=== PATIENT | female | born 1935 | race Caucasian/White ===

== ENCOUNTER 2017-10-09 21:28 | Inpatient (IN) ==
--- NOTE | 2017-10-09 21:53 | Emergency Department Note ---
Disposition Clinical Impression: Foot fracture, Frequent falls, Gait disorder, Morbid obesity Disposition: Admitted As Inpatient Condition: Good Referrals: Myra Hickman MD [Primary Care Provider] - Forms: ED Satisfaction Letter Time of Disposition: 22:18 (josephflakita d[facility]) Lower Extremity Injury HPI - General Chief Complaint: ED Extremity Injury, Lower Stated Complaint: Left foot pain D/T fall onset 2 days Source: patient, family Mode of arrival: ambulatory Limitations: no limitations Nursing Notes Reviewed: Yes Vital Signs Reviewed: Yes - History of Present Illness HPI Narrative: Elderly female the other day lost her balance fell struck and hit her head had a CAT scan done a [facility] also had x-rays of the foot was told that everything was okay patient presents here to the emergency room after still having persistent problems with inability to walk and bear weight patient' s been having swelling edema like she denies any ankle or knee pain patient states that she is unable to put any weight down on the left foot patient states that she is deconditioned she is unable to move about how she caste frequent falls she denies any blurred vision double vision loss vision chest pain chest pressure palpitations cough hemoptysis or sputum production patient is here for evaluation with possible need for placement into a care facility for rehabilitation purposes Pt Subjective Complaint: foot injury Injury location: Left foot (fore foot pain) Onset (ago): day(s) Mechanism of Injury: hyperflexion Context: fall, walking Place: home Pain Severity: moderate, severe Pain Scale: 7 Improves with: nothing Worsens with: weight bearing, movement Associated symptoms: Reports: able to partially bear weight (wgt transfer only) , snap/pop sensation, swelling, deformity Treatments prior to arrival: other (has been seen by other [facility]) - Related Data Home Medications Medication Instructions Recorded Confirmed Albuterol Sulfate [Ventolin Hfa] 1 puff IH Q4H PRN 09/04/17 10/09/17 Alendronate Sodium [Fosamax] 70 mg PO QWEEK 09/04/17 10/09/17 Anastrozole [Arimidex] 1 mg PO DAILY 09/04/17 09/04/17 Citalopram Hydrobromide [Celexa] 30 mg PO QAM 09/04/17 10/09/17 Ergocalciferol (VITAMIN D2) 50,000 mg PO QWEEK 09/04/17 10/09/17 [Vitamin D2] Furosemide [Lasix] 20 mg PO DAILY 09/04/17 10/09/17 Glimepiride [Amaryl] 4 mg PO DAILY 09/04/17 10/09/17 Isosorbide MONOnitrate (24 HR) 30 mg PO DAILY 09/04/17 10/09/17 [Imdur] LORazepam [Ativan] 1 mg PO BID PRN 09/04/17 10/09/17 Lovastatin [Lovastatin] 40 mg PO DAILY 09/04/17 10/09/17 Metoprolol [Lopressor] 100 mg PO BID 09/04/17 10/09/17 Nitroglycerin [Nitrostat] 0.4 mg SL Q5M PRN 09/04/17 10/09/17 Omeprazole [PriLOSEC] 20 mg PO BID 09/04/17 10/09/17 Oxycodone HCl/Acetaminophen 1 tab PO Q8H PRN 09/04/17 10/09/17 [Percocet 7.5-325 mg Tablet] Tizanidine HCl 2 mg PO DAILY PRN 09/04/17 09/04/17 Warfarin [Coumadin] 4 mg PO 1800 09/04/17 10/09/17 traZODone [TraZODone] 50 mg PO HS 09/04/17 10/09/17 Budesonide/Formoterol 160/4.5 1 puff IH BIDR 10/09/17 10/09/17 [Symbicort 160/4.5] Ondansetron HCl [Zofran] 4 mg PO TID 10/09/17 10/09/17 Promethazine [Phenergan] 25 mg PO Q6HR PRN 10/09/17 10/09/17 Allergies Allergy/AdvReac Type Severity Reaction Status Date / Time acetaminophen [From Vicodin] AdvReac Hallucinati Verified 10/09/17 22:11 ng atorvastatin [From Lipitor] AdvReac Weakness Verified 10/09/17 22:11 hydrocodone [From Vicodin] AdvReac Hallucinati Verified 10/09/17 22:11 ng Iodinated Contrast- Oral and AdvReac See Verified 10/09/17 22:11 IV Dye Comments simvastatin [From Zocor] AdvReac Weakness Verified 10/09/17 22:11 All systems ED: reviewed and negative except as stated. Review of Systems: As Per HPI Constitutional: Denies: fever, chills, weakness Eyes: Denies: eye pain, eye discharge ENT ED: Denies: ear pain, throat pain Cardiovascular: Denies: chest pain, palpitations Respiratory: Denies: cough, dyspnea, wheezes Gastrointestinal: Denies: abdominal pain, nausea Genitourinary: Denies: dysuria, frequency, dyspareunia Musculoskeletal: Reports: arthralgia. Denies: back pain, neck pain Integumentary: Denies: rash, abrasion, lesions Neurological: Reports: weakness, other (frequent falls) Psychiatric: Denies: anxiety, depression Endocrine: Denies: fatigue, heat or cold intolerance Hematological/Lymphatic: Reports: other (edema of the legs). Denies: easy bleeding, easy bruising Allergic/Immunologic: Denies: facial swelling, urticaria Past Medical History - Past Medical History Attestation: Yes The following information was validated with the patient. Source: patient, old records reviewed, nursing notes reviewed Medical history: Reports: cancer, CHF, COPD, coronary artery disease, DVT, diabetes, GERD, hyperlipidemia, hypertension, myocardial infarction, pulmonary embolus, syncope Surgical history: Reports: angioplasty/stent, appendectomy, cataract, cholecystectomy, hysterectomy, knee replacement Psychiatric history: Reports: depression - Social History Smoking Status: Never smoker Smokeless Tobacco Status: No Alcohol use: Reports: none Drug use: Reports: none Physical Exam - General Limitations: no limitations General appearance: alert, in no apparent distress, anxious, obese - Head Head exam: atraumatic, normocephalic, normal inspection - Eye Eye exam: Present: normal appearance, PERRL, EOMI - ENT ENT exam: normal exam, normal oropharynx, mucous membranes moist, TM's normal bilaterally, normal external ear exam - Neck Neck exam: Present: normal inspection, full ROM, trachea midline - Chest Chest inspection: Present: normal inspection, symmetric chest wall rise - Respiratory Respiratory exam: Present: normal lung sounds bilaterally - Cardiovascular Cardiovascular exam: Present: regular rate, normal rhythm, normal heart sounds - Abdominal Exam Abdominal exam: Present: soft, Non-Tender, normal bowel sounds. Absent: mass, pulsatile mass - Expanded Upper Extremity Exam Shoulder exam: Present: normal inspection, full ROM Arm exam: Present: normal inspection, full ROM Elbow exam: Present: normal inspection, full ROM Forearm/Wrist exam: Present: normal inspection, full ROM Hand exam: Present: normal inspection, full ROM Vascular exam: Normal: capillary refill, radial pulse - Expanded Lower Extremity Exam Hip/Pelvis exam: Present: normal inspection, full ROM, swelling, other (Large truck 6 extremities but swelling and edema of the lower extremities appears to be symmetrical presentation ) Upper leg exam: Present: normal inspection, full ROM, swelling Knee exam: Present: normal inspection, full ROM, swelling Lower leg exam: Present: normal inspection, full ROM, swelling Ankle exam: Present: normal inspection, full ROM, swelling Foot/toe exam: Present: normal inspection, full ROM, tenderness, swelling, ecchymosis, other (Left foot unable to bear weight) 1 - Tenderness line 2 - Swelling and edema Neurovascular/Tendon exam: Present: normal capillary refill, normal fine/light touch. Absent: motor deficit, sensory deficit, tendon deficit Gait: observed and normal - Back Exam Back exam: Present: normal inspection, full ROM. Absent: muscle spasm - Neurological Exam Neurological exam: Present: alert, oriented X3, CN II-XII intact, normal gait - Psychiatric Psychiatric exam: Present: normal affect, normal mood - Skin Skin exam: Present: warm, dry, intact, normal color Course Course Narrative: Patient seen and examined x-rays were obtained with evidence of what appears to be a 4 foot fracture on the left which would account for the patient's inability to bear weight but with the swelling in the edema and the frequent falls she is unsteady on her gait which would have caused her at higher risk for having further injury as a result recommend hospitalization with possibility of a swing bed or rehabilitation purposes to improve gait stability especially with the recent broken foot and inability to bear weight Dr Genao agrees Vital Signs Temperature 98.2 F 10/09/17 21:30 Pulse Rate 92 10/09/17 21:30 Respiratory Rate 16 10/09/17 21:30 Blood Pressure 174/89 10/09/17 21:30 O2 Sat by Pulse Oximetry 96 10/09/17 21:30 Temperature 98.2 F 10/09/17 21:30 Pulse Rate 92 10/09/17 21:30 Respiratory Rate 16 10/09/17 21:30 Blood Pressure 174/89 10/09/17 21:30 O2 Sat by Pulse Oximetry 96 10/09/17 21:30 Oxygen Delivery Oxygen Delivery Room Air Procedures - Orthopedic Splinting/Casting Injury #1 Side: left Lower Extremity Injury Location: foot Lower Extremity Immobilizer: posterior splint Additional Comments: Neurovascular intact after splint applied by nursing staff Extremity Injury, Lower - Differential Diagnosis Likely: sprain/strain, fracture, dislocation - Medical Records Medical records reviewed: Yes I reviewed the patient's medical records. - Lab Data Lab results reviewed: Yes I reviewed the patient's lab results. Result diagrams: 10/09/17 22:08 10/09/17 22:08 Lab Results 10/09/17 10/09/17 10/09/17 Range/Units 22:08 22:08 22:08 WBC 7.0 (4.3-11.1) K/mcL RBC 4.24 (3.82-4.97) M/mcL Hgb 11.0 L (11.5-15.4) g/dL Hct 34.8 L (35.3-44.9) % MCV 82.1 L (83.0-100.0) fL MCH 25.9 L (28.0-33.3) pg MCHC 31.6 (31.6-35.5) g/dL RDW 14.8 H (11.5-14.5) % Plt Count 171 (140-400) K/mcL MPV 9.5 (9.4-12.4) fL Immature Gran % 0.4 (0-4) % Seg Neutrophils % 67.4 % Lymphocytes % 20.0 % Monocytes % 6.9 % Eosinophils % 4.9 % Basophils % 0.4 % Neutrophils # 4.7 (1.6-8.9) K/mcL Lymphocytes # 1.4 (0.6-4.6) K/mcL Monocytes # 0.5 (0.0-1.3) K/mcL Eosinophils # 0.3 (0.0-0.6) K/mcL Basophils # 0.0 (0.0-0.2) K/mcL PT (9.4-12.1) Seconds INR Sodium 145 (136-145) mEq/L Potassium 3.3 L (3.5-4.5) mEq/L Chloride 105 (98-109) mEq/L Carbon Dioxide 29 (19-29) mEq/L BUN 12 (7-20) mg/dL Creatinine 0.99 (0.57-1.11) mg/dL Est GFR ( Amer) > 60 (> 60) Est GFR (Non-Af Amer) 54 L (> 60) BUN/Creatinine Ratio 12 (6-26) Glucose 155 H (70-99) mg/dL Calculated Osmolality 303 H (280-300) Calcium 9.6 (8.6-10.8) mg/dL B-Natriuretic Peptide 82 (0-100) pg/mL 10/09/17 Range/Units 22:08 WBC (4.3-11.1) K/mcL RBC (3.82-4.97) M/mcL Hgb (11.5-15.4) g/dL Hct (35.3-44.9) % MCV (83.0-100.0) fL MCH (28.0-33.3) pg MCHC (31.6-35.5) g/dL RDW (11.5-14.5) % Plt Count (140-400) K/mcL MPV (9.4-12.4) fL Immature Gran % (0-4) % Seg Neutrophils % % Lymphocytes % % Monocytes % % Eosinophils % % Basophils % % Neutrophils # (1.6-8.9) K/mcL Lymphocytes # (0.6-4.6) K/mcL Monocytes # (0.0-1.3) K/mcL Eosinophils # (0.0-0.6) K/mcL Basophils # (0.0-0.2) K/mcL PT 24.4 H (9.4-12.1) Seconds INR 2.2 Sodium (136-145) mEq/L Potassium (3.5-4.5) mEq/L Chloride (98-109) mEq/L Carbon Dioxide (19-29) mEq/L BUN (7-20) mg/dL Creatinine (0.57-1.11) mg/dL Est GFR ( Amer) (> 60) Est GFR (Non-Af Amer) (> 60) BUN/Creatinine Ratio (6-26) Glucose (70-99) mg/dL Calculated Osmolality (280-300) Calcium (8.6-10.8) mg/dL B-Natriuretic Peptide (0-100) pg/mL - Radiology Data Radiology results reviewed: Yes I reviewed the patient's radiology results. ITS Impressions Foot X-Ray 10/09/17 21:35 IMPRESSION: Acute fractures of the 2nd through 4th metatarsals distally. D/ / Darnell Burnett MD / Darnell Burnett MD Interpreting Provider: Darnell Burnett MD Critical Care Time Critical Care Time: No
[2017-10-09 22:14] LABS: Basophils % 0.4 %; Eosinophils # 0.3 K/mcL (0.0-0.6); Eosinophils % 4.9 %; Hematocrit 34.8 % (35.3-44.9); Immature Granulocytes % 0.4 % (0-4); Lymphocytes # 1.4 K/mcL (0.6-4.6); Mean Corpuscular HGB Conc 31.6 g/dL (31.6-35.5); Mean Corpuscular Hemoglobin 25.9 pg (28.0-33.3); Mean Corpuscular Volume 82.1 fL (83.0-100.0); Mean Platelet Volume 9.5 fL (9.4-12.4); Monocytes # 0.5 K/mcL (0.0-1.3); Monocytes % 6.9 %; Neutrophils # 4.7 K/mcL (1.6-8.9); Platelet Count 171 K/mcL (140-400); Red Blood Count 4.24 M/mcL (3.82-4.97); Red Cell Distribution Width 14.8 % (11.5-14.5); Segmented Neutrophils % 67.4 %
[2017-10-09] MEDS ORDERED: *HR* OxyCODONE/APAP 5/325 TABLET PO ONE (22:16)
[2017-10-09 22:27] LABS: BUN/Creatinine Ratio 12 (6-26); Blood Urea Nitrogen 12 mg/dL (7-20); Calcium 9.6 mg/dL (8.6-10.8); Carbon Dioxide 29 mEq/L (19-29); Chloride 105 mEq/L (98-109); Glucose 155 mg/dL (70-99); Osmolality,Calculated 303 (280-300); Potassium 3.3 mEq/L (3.5-4.5); Sodium 145 mEq/L (136-145); eGFR For African Americans > 60 (> 60); eGFR For Non-African Americans 54 (> 60)
[2017-10-09 22:34] LABS: INR 2.2; Prothrombin Time 24.4 Seconds (9.4-12.1)
[2017-10-09] MEDS ORDERED: Potassium Effervescent 25 MEQ TABLET.EFF PO ONE (22:43)
[2017-10-09] MEDS ORDERED: Nitroglycerin 0.4 MG TAB.SUBL SL PRN (23:28)
[2017-10-09] MEDS ORDERED: NON-FORMULARY MEDICATION 1 EACH EACH (Alendronate Sodium [Fosamax] 70 MG) PO SCH (23:28)
[2017-10-09] MEDS ORDERED: Naloxone 0.4 MG/ML INJ IVP PRN (23:28)
[2017-10-10] MEDS: *HR* LORazepam 1 MG TABLET PO PRN ×2 (01:01→23:20)
[2017-10-10 06:27] LABS: Basophils % 0.5 %; Eosinophils # 0.3 K/mcL (0.0-0.6); Hematocrit 31.1 % (35.3-44.9); Hemoglobin 9.9 g/dL (11.5-15.4); Immature Granulocytes % 0.8 % (0-4); Lymphocytes # 1.7 K/mcL (0.6-4.6); Lymphocytes % 26.7 %; Mean Corpuscular HGB Conc 31.8 g/dL (31.6-35.5); Mean Corpuscular Hemoglobin 26.1 pg (28.0-33.3); Mean Corpuscular Volume 82.1 fL (83.0-100.0); Mean Platelet Volume 9.9 fL (9.4-12.4); Monocytes # 0.5 K/mcL (0.0-1.3); Monocytes % 8.3 %; Neutrophils # 3.7 K/mcL (1.6-8.9); Platelet Count 144 K/mcL (140-400); Red Blood Count 3.79 M/mcL (3.82-4.97); Red Cell Distribution Width 14.7 % (11.5-14.5); Segmented Neutrophils % 58.7 %
[2017-10-10 06:35] LABS: Prothrombin Time 22.4 Seconds (9.4-12.1)
[2017-10-10 06:38] LABS: Activated Partial Thrombo Time 32.5 Seconds (26.0-36.0)
[2017-10-10 06:43] LABS: BUN/Creatinine Ratio 16 (6-26); Blood Urea Nitrogen 13 mg/dL (7-20); Calcium 9.3 mg/dL (8.6-10.8); Carbon Dioxide 29 mEq/L (19-29); Chloride 107 mEq/L (98-109); Glucose 98 mg/dL (70-99); Osmolality,Calculated 300 (280-300); Potassium 3.7 mEq/L (3.5-4.5); Sodium 145 mEq/L (136-145); eGFR For African Americans > 60 (> 60); eGFR For Non-African Americans > 60 (> 60)
[2017-10-10] MEDS ORDERED: *HR* Glimepiride 4 MG TABLET PO SCH (09:00)
[2017-10-10] MEDS ORDERED: Furosemide 20 MG TABLET PO SCH (09:00)
[2017-10-10] MEDS ORDERED: Metoprolol 100 MG TABLET PO SCH (09:00)
[2017-10-10] MEDS: Isosorbide MONOnitrate (24 HR) 30 MG TAB.ER.24H PO SCH (09:55)
[2017-10-10] MEDS: *HR* OxyCODONE/APAP 7.5/325 TABLET PO PRN ×3 (10:00→23:18)
[2017-10-10] MEDS: Cholecalciferol (D-3) 1,000 UNIT TABLET PO SCH (10:50)
[2017-10-10] MEDS: *HR* Glimepiride 2 MG TABLET PO SCH (10:50)
--- NOTE | 2017-10-10 15:14 | Internal Med History&Physical ---
Date of Encounter: 10/10/17 Time of Encounter: 14:30 Assessment and Plan (1) Foot fracture Current visit: Yes Status: Acute She will be given scheduled Tylenol and prn analgesics. She will need to be seen by the orthopedist and probably need a walking boot. She will require therapy intervention to assess for stability using a walker with the walking boot. Qualifiers: Encounter type: initial encounter Fracture type: closed Laterality: left Qualified Code(s): S92.902A - Unspecified fracture of left foot, initial encounter for closed fracture (2) Hypokalemia Current visit: Yes Status: Acute Suspect due to Lasix use. Will add supplemental potassium and monitor labs. (3) Azotemia Current visit: Yes Status: Acute Estimated GFR was decreased at 54 on admission. She will be given IV fluids and renal indices monitored. (4) Microcytic anemia Current visit: Yes Status: Acute We will order anemia testing in a.m. Hemoglobin has decreased further to 9.9. (5) Frequent falls Current visit: Yes Status: Acute Suspect multifactorial etiology including DJD, anemia, and muscle weakness from hypokalemia. (6) Headache Current visit: Yes Status: Acute We will order head CT since she is on Coumadin and has had 2 falls and complaints of headache. Qualifiers: Headache type: unspecified Headache chronicity pattern: acute headache Intractability: not intractable Qualified Code(s): R51 - Headache Internal Medicine - H&P: HPI Chief complaint: Falls, multiple metatarsal fractures, microcytic anemia Admitted From: Emergency Dept Plans for Post Hospital Care: Transfer Longterm Facility History of present illness: Ms. Baird is a 81 year old female who came to emergency room for persistent pain in her left foot following falls she had October 05 and October 06. She had been to a local emergency room near her home where x-rays of the ankle were done with no fracture seen. She had additional x-rays of her ankle done at her PCP office the following day but no fractures were noted. She continued to have pain in her foot so came to [facility] emergency room. Foot x-ray showed left second third and fourth metatarsal bone fractures . She was admitted to [facility] for ongoing care needs. She states she is had several episodes of near-falls besides the 2 falls mentioned above. She reports feeling dizzy on standing and general weakness. She has occasional sensation of vertigo. She has had left arm fracture in the past. She has diagnosis of gout and DJD. She typically walks with a walker. She has had bilateral total knee replacements. Past Med Surg Social Fam HX - Past Medical History Medical history: cancer, CHF, COPD, coronary artery disease, DVT, diabetes, GERD , hyperlipidemia, hypertension, myocardial infarction, pulmonary embolus, syncope Psychiatric history: depression - Past Surgical History Surgical History: angioplasty/stent, appendectomy, cataract, cholecystectomy, hysterectomy, knee replacement - Social History Smoking Status: Never smoker Smokeless Tobacco Status: No Alcohol use: none Drug use: none Internal Medicine - H&P: Meds Albuterol Sulfate [Ventolin Hfa] 1 puff IH Q4H PRN 09/04/17 [History] Alendronate Sodium [Fosamax] 70 mg PO QWEEK 09/04/17 [History] Anastrozole [Arimidex] 1 mg PO DAILY 09/04/17 [History] Citalopram Hydrobromide [Celexa] 30 mg PO QAM 09/04/17 [History] Ergocalciferol (VITAMIN D2) [Vitamin D2] 50,000 mg PO QWEEK 09/04/17 [History] Furosemide [Lasix] 20 mg PO DAILY 09/04/17 [History] Glimepiride [Amaryl] 4 mg PO DAILY 09/04/17 [History] Isosorbide MONOnitrate (24 HR) [Imdur] 30 mg PO DAILY 09/04/17 [History] LORazepam [Ativan] 1 mg PO BID PRN 09/04/17 [History] Lovastatin [Lovastatin] 40 mg PO DAILY 09/04/17 [History] Metoprolol [Lopressor] 100 mg PO BID 09/04/17 [History] Nitroglycerin [Nitrostat] 0.4 mg SL Q5M PRN 09/04/17 [History] Omeprazole [PriLOSEC] 20 mg PO BID 09/04/17 [History] Oxycodone HCl/Acetaminophen [Percocet 7.5-325 mg Tablet] 1 tab PO Q8H PRN [History] Tizanidine HCl 2 mg PO DAILY PRN 09/04/17 [History] Warfarin [Coumadin] 4 mg PO 1800 09/04/17 [History] traZODone [TraZODone] 50 mg PO HS 09/04/17 [History] Budesonide/Formoterol 160/4.5 [Symbicort 160/4.5] 1 puff IH BIDR 10/09/17 [ History] Ondansetron HCl [Zofran] 4 mg PO TID 10/09/17 [History] Promethazine [Phenergan] 25 mg PO Q6HR PRN 10/09/17 [History] 3 Allergy/AdvReac Type Severity Reaction Status Date / Time acetaminophen [From Vicodin] AdvReac Hallucinati Verified 10/10/17 00:45 ng atorvastatin [From Lipitor] AdvReac Weakness Verified 10/10/17 00:46 hydrocodone [From Vicodin] AdvReac Hallucinati Verified 10/10/17 00:46 ng Iodinated Contrast- Oral and AdvReac See Verified 10/10/17 00:45 IV Dye Comments simvastatin [From Zocor] AdvReac Weakness Verified 10/10/17 00:46 All Systems PM: A 10-system review of systems was performed and is negative for pertinent findings except as documented above in the HPI. Review of systems: Gen.: Her weight has been stable the past 2 months Cardiovascular: She has history of hypertension and known ASHD status post FL on 2 occasions with the most recent one approximately 2012. She has had a total of 8 stents placed with most recent ones done at the time of her last FL/ catheter in 2012. She has been diagnosed CHF. 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 Respiratory: She is a lifelong nonsmoker but states she has been diagnosed with COPD. She uses oxygen at bedtime and when necessary during the daytime. GI: She has had cholecystectomy but denies disorders of her liver or exocrine pancreas : She denies hematuria dysuria or kidney stones Neurologic: She denies large distribution strokes or seizures Endocrine: She was diagnosed with DM 2 approximately 1996. She has hyperlipidemia but no known thyroid disease Hematology/oncology: She had left breast cancer with partial mastectomy in 2014. She is presumed cancer free and uses Arimidex now. She has had anemia in the past but does not know details . Psychiatric: She has anxiety and depression but denies other mental health issues Musk skeletal: As per history of present illness - Constitutional Vitals: Temp Pulse Resp BP Pulse Ox 98.1 F 82 18 186/90 98 10/10/17 11:07 10/10/17 11:07 10/10/17 11:07 10/10/17 11:07 10/10/17 11:07 Exam: Gen.: She is well-developed overweight female lying in bed who appears weak and tired. She complains of pain in her left foot, head, and shoulder HEENT: Head is a chronic and normocephalic. Eyes: EOMI. There is no scleral icterus. Mouth: Mucosa is dry Neck: Supple and nontender. There is no thyromegaly or adenopathy noted. Heart: Regular without murmurs gallops or ectopics Lungs: No wheezes or crackles are heard. Abdomen: She has mild tenderness to palpation. No masses or guarding are noted. Extremities: Left lower leg is wrapped in a immobilization splint with elastic wrap. I did not remove this. The right leg shows trace palpable dorsalis pedis and posterior tibial pulses. She has DJD changes of her hands. Neurologic: Mental status: She is talkative and a good historian. Cranial nerves: Smile is symmetric. Forehead wrinkles bilaterally. Tongue protrudes midline. EOMI. Motor: There is no pronator drift. Cerebellar: Finger to nose is intact bilaterally. Skin: Warm and dry Internal Med - H&P Results - Labs CBC & Chem 7: 10/10/17 05:53 10/10/17 05:53 Labs: Short CBC 10/10/17 Range/Units 05:53 WBC 6.3 (4.3-11.1) K/mcL Hgb 9.9 L (11.5-15.4) g/dL Hct 31.1 L (35.3-44.9) % Plt Count 144 (140-400) K/mcL Neutrophils # 3.7 (1.6-8.9) K/mcL BMP 10/10/17 05:53 Sodium 145 Potassium 3.7 Chloride 107 Carbon Dioxide 29 BUN 13 Creatinine 0.81 Glucose 98 Calcium 9.3
[2017-10-10] MEDS: *HR* Warfarin 3 MG TABLET PO SCH (18:01)
[2017-10-10] MEDS: traZODone 50 MG TABLET PO SCH (20:36)
[2017-10-11 05:18] LABS: Basophils % 0.6 %; Eosinophils # 0.4 K/mcL (0.0-0.6); Eosinophils % 5.7 %; Hemoglobin 11.4 g/dL (11.5-15.4); Immature Granulocytes % 0.5 % (0-4); Lymphocytes # 2.2 K/mcL (0.6-4.6); Lymphocytes % 34.1 %; Mean Corpuscular HGB Conc 31.7 g/dL (31.6-35.5); Mean Corpuscular Hemoglobin 26.1 pg (28.0-33.3); Mean Corpuscular Volume 82.4 fL (83.0-100.0); Mean Platelet Volume 9.5 fL (9.4-12.4); Monocytes # 0.6 K/mcL (0.0-1.3); Neutrophils # 3.3 K/mcL (1.6-8.9); Platelet Count 159 K/mcL (140-400); Red Blood Count 4.37 M/mcL (3.82-4.97); Red Cell Distribution Width 14.8 % (11.5-14.5); Segmented Neutrophils % 50.1 %
[2017-10-11 05:45] LABS: Alanine Aminotransferase 7 Units/L (0-55); Albumin 3.2 g/dL (3.5-5.0); Albumin/Globulin Ratio 0.8 (1.1-2.2); Alkaline Phosphatase 69 Units/L (38-126); Aspartate Amino Transferase 12 Units/L (5-34); BUN/Creatinine Ratio 12 (6-26); Bilirubin,Total 0.5 mg/dL (0.2-1.2); Blood Urea Nitrogen 11 mg/dL (7-20); Calcium 9.8 mg/dL (8.6-10.8); Carbon Dioxide 31 mEq/L (19-29); Chloride 105 mEq/L (98-109); Globulin 3.8 g/dL (2.4-3.5); Glucose 96 mg/dL (70-99); Magnesium 2.2 mg/dL (1.6-2.6); Osmolality,Calculated 299 (280-300); Potassium 3.9 mEq/L (3.5-4.5); Sodium 145 mEq/L (136-145); eGFR For African Americans > 60 (> 60); eGFR For Non-African Americans 60 (> 60)
[2017-10-11] MEDS: 0.45 % Sodium Chloride w/KCl 20 MEQ/1,000 ML MLS IVC SCH ×4 (05:59→19:03)
[2017-10-11 06:05] LABS: Thyroid Stimulating Hormone 0.814 mcIU/mL (0.350-4.840)
[2017-10-11] MEDS: Isosorbide MONOnitrate (24 HR) 30 MG TAB.ER.24H PO SCH (08:27)
[2017-10-11] MEDS: Cholecalciferol (D-3) 1,000 UNIT TABLET PO SCH (08:27)
[2017-10-11] MEDS: *HR* OxyCODONE/APAP 7.5/325 TABLET PO PRN ×3 (08:28→21:34)
[2017-10-11] MEDS: *HR* LORazepam 1 MG TABLET PO PRN ×2 (08:29→21:35)
[2017-10-11] MEDS: *HR* Glimepiride 2 MG TABLET PO SCH ×2 (08:29→12:04)
[2017-10-11 10:37] LABS: % Iron Saturation 15 % (15-50); Ferritin 43 ng/ml (10-120); Iron 50 mcg/dL (50-170); Transferrin 237 mg/dL (203-362)
[2017-10-11 12:08] LABS: Folate 9.9 ng/mL (3.0-16.0)
--- NOTE | 2017-10-11 17:11 | Internal Med Progress Note ---
Date of Encounter: 10/11/17 Time of Encounter: 17:05 - Assessment and plan (1) Foot fracture Current Visit: Yes Status: Acute Assessment and plan: October 11. Continue scheduled Tylenol and prn analgesics. Will be seen by orthopedist 10/13/2017 if appointment can be arranged. Qualifiers: Encounter type: initial encounter Fracture type: closed Laterality: left Qualified Code(s): S92.902A - Unspecified fracture of left foot, initial encounter for closed fracture (2) Hypokalemia Current Visit: Yes Status: Acute Assessment and plan: October 11. Resolved. Continue IV fluids with potassium supplementation and recheck labs in a.m. (3) Azotemia Current Visit: Yes Status: Acute Assessment and plan: October 11. Creatinine was stable at 0.91 with estimated GFR 60. (4) Microcytic anemia Current Visit: Yes Status: Acute Assessment and plan: October 11. Anemia testing showed iron 50, transferrin saturation 15%, transferrin 237, ferritin 43, B12 445, and folate 9.9. Hemoglobin has improved to 11.4. (5) Frequent falls Current Visit: Yes Status: Acute Assessment and plan: October 11. Continue therapy (6) Headache Current Visit: Yes Status: Acute Assessment and plan: October 11. Head CT was unremarkable. She did not mention headache today. Will continue to monitor. Qualifiers: Headache type: unspecified Headache chronicity pattern: acute headache Intractability: not intractable Qualified Code(s): R51 - Headache - Subjective Interval history: October 11. She has no new complaints. She has pain in her left foot. - Constitutional Vitals: Temp Pulse Resp BP Pulse Ox 97.9 F 65 16 133/62 94 10/11/17 15:14 10/11/17 15:14 10/11/17 15:14 10/11/17 15:14 10/11/17 15:14 Exam: She is sitting in a chair at bedside and appears comfortable. She is more alert and talkative. She does not appear in pain at rest. I reviewed her medications and lab results. Internal Medicine: Result - Labs CBC & Chem 7: 10/11/17 04:53 10/11/17 04:53 Labs: Short CBC 10/11/17 Range/Units 04:53 WBC 6.5 (4.3-11.1) K/mcL Hgb 11.4 L D (11.5-15.4) g/dL Hct 36.0 (35.3-44.9) % Plt Count 159 (140-400) K/mcL Neutrophils # 3.3 (1.6-8.9) K/mcL BMP 10/11/17 04:53 Sodium 145 Potassium 3.9 Chloride 105 Carbon Dioxide 31 H BUN 11 Creatinine 0.91 Glucose 96 Calcium 9.8 Liver Function 10/11/17 Range/Units 04:53 Total Bilirubin 0.5 (0.2-1.2) mg/dL AST 12 (5-34) Units/L ALT 7 (0-55) Units/L Alkaline Phosphatase 69 (38-126) Units/L Albumin 3.2 L (3.5-5.0) g/dL - ABG Interpretation ABG results: PT/INR, D-dimer PT 22.4 Seconds (9.4-12.1) H 10/10/17 05:53 Consult Discharge Plan - Plan Referrals: Myra Hickman MD [Primary Care Provider] - 1 week
[2017-10-11] MEDS: *HR* Warfarin 3 MG TABLET PO SCH (17:14)
[2017-10-11] MEDS: traZODone 50 MG TABLET PO SCH (21:35)
[2017-10-12 06:04] LABS: Basophils % 0.5 %; Eosinophils # 0.4 K/mcL (0.0-0.6); Eosinophils % 6.6 %; Hematocrit 33.7 % (35.3-44.9); Hemoglobin 10.6 g/dL (11.5-15.4); Immature Granulocytes % 0.5 % (0-4); Lymphocytes # 1.8 K/mcL (0.6-4.6); Lymphocytes % 28.5 %; Mean Corpuscular HGB Conc 31.5 g/dL (31.6-35.5); Mean Corpuscular Hemoglobin 26.2 pg (28.0-33.3); Mean Corpuscular Volume 83.2 fL (83.0-100.0); Mean Platelet Volume 10.2 fL (9.4-12.4); Monocytes # 0.6 K/mcL (0.0-1.3); Monocytes % 8.8 %; Neutrophils # 3.5 K/mcL (1.6-8.9); Platelet Count 143 K/mcL (140-400); Red Blood Count 4.05 M/mcL (3.82-4.97); Red Cell Distribution Width 14.9 % (11.5-14.5); Segmented Neutrophils % 55.1 %
[2017-10-12 06:25] LABS: BUN/Creatinine Ratio 15 (6-26); Blood Urea Nitrogen 13 mg/dL (7-20); Calcium 9.4 mg/dL (8.6-10.8); Carbon Dioxide 28 mEq/L (19-29); Chloride 109 mEq/L (98-109); Glucose 97 mg/dL (70-99); Osmolality,Calculated 298 (280-300); Potassium 4.2 mEq/L (3.5-4.5); Sodium 144 mEq/L (136-145); eGFR For African Americans > 60 (> 60); eGFR For Non-African Americans > 60 (> 60)
[2017-10-12] MEDS: *HR* OxyCODONE/APAP 7.5/325 TABLET PO PRN ×3 (08:21→17:46)
[2017-10-12] MEDS: Cholecalciferol (D-3) 1,000 UNIT TABLET PO SCH (08:22)
[2017-10-12] MEDS: *HR* Glimepiride 2 MG TABLET PO SCH (08:22)
[2017-10-12] MEDS: Isosorbide MONOnitrate (24 HR) 30 MG TAB.ER.24H PO SCH (08:22)
[2017-10-12] MEDS: *HR* LORazepam 1 MG TABLET PO PRN ×2 (08:22→20:36)
--- NOTE | 2017-10-12 11:19 | Internal Med Progress Note ---
Date of Encounter: 10/12/17 Time of Encounter: 11:10 - Assessment and plan (1) Foot fracture Current Visit: Yes Status: Acute Assessment and plan: October 11. Continue scheduled Tylenol and prn analgesics. Will be seen by orthopedist 10/13/2017 if appointment can be arranged. October 12. Will add scheduled tramadol and continue Tylenol Qualifiers: Encounter type: initial encounter Fracture type: closed Laterality: left Qualified Code(s): S92.902A - Unspecified fracture of left foot, initial encounter for closed fracture (2) Hypokalemia Current Visit: Yes Status: Acute Assessment and plan: October 11. Resolved. Continue IV fluids with potassium supplementation and recheck labs in a.m. (3) Azotemia Current Visit: Yes Status: Acute Assessment and plan: October 11. Creatinine was stable at 0.91 with estimated GFR 60. (4) Microcytic anemia Current Visit: Yes Status: Acute Assessment and plan: October 11. Anemia testing showed iron 50, transferrin saturation 15%, transferrin 237, ferritin 43, B12 445, and folate 9.9. Hemoglobin has improved to 11.4. (5) Frequent falls Current Visit: Yes Status: Acute Assessment and plan: October 11. Continue therapy (6) Headache Current Visit: Yes Status: Acute Assessment and plan: October 11. Head CT was unremarkable. She did not mention headache today. Will continue to monitor. Qualifiers: Headache type: unspecified Headache chronicity pattern: acute headache Intractability: not intractable Qualified Code(s): R51 - Headache (7) Hypertension Current Visit: Yes Status: Chronic Assessment and plan: October 12. Continue metoprolol. Will add Norvasc Qualifiers: Hypertension type: essential hypertension Qualified Code(s): I10 - Essential (primary) hypertension - Subjective Interval history: October 11. She has no new complaints. She has pain in her left foot. October 12. Her left foot pain is minimally improved. She has no other new complaints. - Constitutional Vitals: Temp Pulse Resp BP Pulse Ox 97.8 F 71 16 178/64 94 10/12/17 11:11 10/12/17 11:11 10/12/17 11:11 10/12/17 11:11 10/12/17 11:11 Exam: She is resting comfortably in bed and appears in no acute distress. Her affect is bright and cheerful. I reviewed her medications and lab results. Internal Medicine: Result - Labs CBC & Chem 7: 10/12/17 04:55 10/12/17 04:55 Labs: Short CBC 10/12/17 Range/Units 04:55 WBC 6.3 (4.3-11.1) K/mcL Hgb 10.6 L (11.5-15.4) g/dL Hct 33.7 L (35.3-44.9) % Plt Count 143 (140-400) K/mcL Neutrophils # 3.5 (1.6-8.9) K/mcL BMP 10/12/17 04:55 Sodium 144 Potassium 4.2 Chloride 109 Carbon Dioxide 28 BUN 13 Creatinine 0.89 Glucose 97 Calcium 9.4 - ABG Interpretation ABG results: PT/INR, D-dimer PT 22.4 Seconds (9.4-12.1) H 10/10/17 05:53 Consult Discharge Plan - Plan Referrals: Myra Hickman MD [Primary Care Provider] - 1 week
[2017-10-12] MEDS: traMADol 50 MG TABLET PO SCH ×2 (12:29→17:47)
[2017-10-12] MEDS: amLODIPine 5 MG TABLET PO SCH (12:29)
[2017-10-12] MEDS: *HR* Warfarin 3 MG TABLET PO SCH (17:45)
[2017-10-12] MEDS: traZODone 50 MG TABLET PO SCH (20:36)
[2017-10-13] MEDS: traMADol 50 MG TABLET PO SCH ×3 (00:17→12:04)
[2017-10-13 06:38] VITALS: BP 153/68
[2017-10-13] MEDS: *HR* OxyCODONE/APAP 7.5/325 TABLET PO PRN ×2 (09:44→17:07)
[2017-10-13] MEDS: amLODIPine 5 MG TABLET PO SCH (09:45)
[2017-10-13] MEDS: Cholecalciferol (D-3) 1,000 UNIT TABLET PO SCH (09:45)
[2017-10-13] MEDS: *HR* Glimepiride 2 MG TABLET PO SCH (09:46)
[2017-10-13] MEDS: Isosorbide MONOnitrate (24 HR) 30 MG TAB.ER.24H PO SCH (09:46)
[2017-10-13] MEDS: *HR* LORazepam 1 MG TABLET PO PRN (12:04)
--- NOTE | 2017-10-13 14:40 | Discharge Summary ---
Date of Encounter: 10/13/17 Time of Encounter: 14:30 - Discharge Diagnosis (1) Foot fracture Priority: Primary Status: Acute Qualifiers: Encounter type: initial encounter Fracture type: closed Laterality: left Qualified Code(s): S92.902A - Unspecified fracture of left foot, initial encounter for closed fracture (2) Hypokalemia Priority: Secondary Status: Resolved (3) Microcytic anemia Priority: Secondary Status: Acute (4) Frequent falls Priority: Secondary Status: Acute (5) Hypertension Priority: Secondary Status: Chronic Qualifiers: Hypertension type: essential hypertension Qualified Code(s): I10 - Essential (primary) hypertension - Discharge Medications Prescriptions: LORazepam [Ativan] 1 mg PO BID PRN 7 Days #14 tablet PRN Reason: Anxiety Oxycodone HCl/Acetaminophen [Percocet 7.5-325 mg Tablet] 1 tab PO Q8H PRN 7 Days #21 tablet PRN Reason: Pain Home Medications: Albuterol Sulfate [Ventolin Hfa] 1 puff IH Q4H PRN 09/04/17 [History] Alendronate Sodium [Fosamax] 70 mg PO QWEEK 09/04/17 [History] Anastrozole [Arimidex] 1 mg PO DAILY 09/04/17 [History] Citalopram Hydrobromide [Celexa] 30 mg PO QAM 09/04/17 [History] Ergocalciferol (VITAMIN D2) [Vitamin D2] 50,000 mg PO QWEEK 09/04/17 [History] Glimepiride [Amaryl] 4 mg PO DAILY 09/04/17 [History] Isosorbide MONOnitrate (24 HR) [Imdur] 30 mg PO DAILY 09/04/17 [History] Lovastatin 40 mg PO DAILY 09/04/17 [History] Metoprolol [Lopressor] 100 mg PO BID 09/04/17 [History] Nitroglycerin [Nitrostat] 0.4 mg SL Q5M PRN 09/04/17 [History] Tizanidine HCl 2 mg PO DAILY PRN 09/04/17 [History] Warfarin [Coumadin] 4 mg PO 1800 09/04/17 [History] traZODone [TraZODone] 50 mg PO HS 09/04/17 [History] Budesonide/Formoterol 160/4.5 [Symbicort 160/4.5] 1 puff IH BIDR 10/09/17 [ History] Ondansetron HCl [Zofran] 4 mg PO TID 10/09/17 [History] Promethazine [Phenergan] 25 mg PO Q6HR PRN 10/09/17 [History] LORazepam [Ativan] 1 mg PO BID PRN 7 Days #14 tablet 10/13/17 [Rx] Omeprazole [PriLOSEC] 20 mg PO BID PRN #0 10/13/17 [Rx] Oxycodone HCl/Acetaminophen [Percocet 7.5-325 mg Tablet] 1 tab PO Q8H PRN 7 Days #21 tablet 10/13/17 [Rx] amLODIPine [Norvasc] 5 mg PO DAILY tablet 10/13/17 [Rx] Allergies/Adverse Reactions: 3 Allergy/AdvReac Type Severity Reaction Status Date / Time acetaminophen [From Vicodin] AdvReac Hallucinati Verified 10/10/17 00:45 ng atorvastatin [From Lipitor] AdvReac Weakness Verified 10/10/17 00:46 hydrocodone [From Vicodin] AdvReac Hallucinati Verified 10/10/17 00:46 ng Iodinated Contrast- Oral and AdvReac See Verified 10/10/17 00:45 IV Dye Comments simvastatin [From Zocor] AdvReac Weakness Verified 10/10/17 00:46 Date of admission: 10/10/17 18:28 Primary care physician: Myra Salomon - Patient Status Disposition: Transfer SNF Condition: Good Functional capacity at discharge: uses cane/walker Overall status at discharge: patient is progressing back to baseline - Discharge Instructions - Diet and Activity Activity: as per physical therapy, resume usual activities as tolerated Diet: advance to your usual diet Hospital course: Ms. Baird is a 81 year old female who came to emergency room for persistent pain in her left foot following falls she had October 05 and October 06. She had been to a local emergency room near her home where x-rays of the ankle were done with no fracture seen. She had additional x-rays of her ankle done at her PCP office the following day but no fractures were noted. She continued to have pain in her foot so came to [facility] emergency room. Foot x-ray showed left second third and fourth metatarsal bone fractures . She was admitted to [facility] for ongoing care needs. Initial orders were written by the emergency room physician. I saw her on October 10 and performed the history and physical. She was given scheduled and prn analgesics. Physical therapy and occupational therapy evaluation was done. She saw an [place] [facility] physician on October 13 and was placed in a walking shoe. Social service consult arranged for discharge to [facility] the afternoon of October 13. She will follow with a PCP there. Lasix was held and IV fluids given her azotemia improved with creatinine decreasing to 0.89 and estimated GFR greater than 60 on October 12. She will remain off Lasix at discharge. Supplemental potassium was given and hypokalemia resolved. - Time Spent with Patient Total time spent providing and/or coordinating discharge services: - Constitutional Vitals: Temp Pulse Resp BP Pulse Ox 98 F 64 18 153/68 94 10/13/17 06:36 10/13/17 06:36 10/13/17 06:36 10/13/17 06:36 10/13/17 06:36
--- NOTE | 2017-10-13 15:03 | Physician Discharge Referral ---
ExtendedCare Referral Info Transfer To: [facility] Provider in Charge: [place] Provider in Charge after Transfer: PCP - Diagnosis (1) Foot fracture Priority: Primary Status: Acute (2) Hypokalemia Status: Resolved (3) Microcytic anemia Priority: Secondary Status: Acute (4) Frequent falls Priority: Secondary Status: Acute (5) Hypertension Priority: Secondary Status: Chronic - Transfer Medications Prescriptions: LORazepam [Ativan] 1 mg PO BID PRN 7 Days #14 tablet PRN Reason: Anxiety Oxycodone HCl/Acetaminophen [Percocet 7.5-325 mg Tablet] 1 tab PO Q8H PRN 7 Days #21 tablet PRN Reason: Pain Home Medications: Albuterol Sulfate [Ventolin Hfa] 1 puff IH Q4H PRN 09/04/17 [History] Alendronate Sodium [Fosamax] 70 mg PO QWEEK 09/04/17 [History] Anastrozole [Arimidex] 1 mg PO DAILY 09/04/17 [History] Citalopram Hydrobromide [Celexa] 30 mg PO QAM 09/04/17 [History] Ergocalciferol (VITAMIN D2) [Vitamin D2] 50,000 mg PO QWEEK 09/04/17 [History] Glimepiride [Amaryl] 4 mg PO DAILY 09/04/17 [History] Isosorbide MONOnitrate (24 HR) [Imdur] 30 mg PO DAILY 09/04/17 [History] Lovastatin 40 mg PO DAILY 09/04/17 [History] Metoprolol [Lopressor] 100 mg PO BID 09/04/17 [History] Nitroglycerin [Nitrostat] 0.4 mg SL Q5M PRN 09/04/17 [History] Tizanidine HCl 2 mg PO DAILY PRN 09/04/17 [History] Warfarin [Coumadin] 4 mg PO 1800 09/04/17 [History] traZODone [TraZODone] 50 mg PO HS 09/04/17 [History] Budesonide/Formoterol 160/4.5 [Symbicort 160/4.5] 1 puff IH BIDR 10/09/17 [ History] Ondansetron HCl [Zofran] 4 mg PO TID 10/09/17 [History] Promethazine [Phenergan] 25 mg PO Q6HR PRN 10/09/17 [History] LORazepam [Ativan] 1 mg PO BID PRN 7 Days #14 tablet 10/13/17 [Rx] Omeprazole [PriLOSEC] 20 mg PO BID PRN #0 10/13/17 [Rx] Oxycodone HCl/Acetaminophen [Percocet 7.5-325 mg Tablet] 1 tab PO Q8H PRN 7 Days #21 tablet 10/13/17 [Rx] amLODIPine [Norvasc] 5 mg PO DAILY tablet 10/13/17 [Rx] Allergies/Adverse Reactions: 3 Allergy/AdvReac Type Severity Reaction Status Date / Time acetaminophen [From Vicodin] AdvReac Hallucinati Verified 10/10/17 00:45 ng atorvastatin [From Lipitor] AdvReac Weakness Verified 10/10/17 00:46 hydrocodone [From Vicodin] AdvReac Hallucinati Verified 10/10/17 00:46 ng Iodinated Contrast- Oral and AdvReac See Verified 10/10/17 00:45 IV Dye Comments simvastatin [From Zocor] AdvReac Weakness Verified 10/10/17 00:46 - Respiratory Orders Smoking Cessation: Smoking cessation has been advised. For more information, call the [place] Tobacco Quit Line at 4-895-PBPZ-NOW. - Lab Orders Lab Orders: Other (include drug levels w/frequency) (CBC with differential, BMP , PT/INR in 1 week) - Mobility Orders Ambulate - Rehabiliation Orders Rehab Potential: Fair Rehab Orders: Evaluation for Physical Therapy, Evaluation for Occupational Therapy CERTIFICATION: I certify that the transfer of the above named patient to an Extended Care Facility is necessary for the continuing treatment of the diagnosis listed. The above information is true and accurate reflection of patient's current condition. Confidential - Redisclosure prohibited without a patient's written consent.
[2017-10-13] MEDS: *HR* Warfarin 3 MG TABLET PO SCH (17:07)
== END 2017-10-13 17:30 | DRG 563 ==
LOC: INPPIK 21:28 → EMEROOPIK 21:28 → INPPIK 23:15
PROVIDERS: ADMIT Internal Medicine; ATTEND Internal Medicine